=== PATIENT | male | born 1950 | race Caucasian/White ===

== ENCOUNTER → 2019-10-22 | Outpatient (CLI) | payer OTHER ==
--- NOTE | 2019-10-22 09:47 | MR ---
EXAMINATION TYPE: MR lumbar spine wo con DATE OF EXAM: 10/22/2019 COMPARISON: NONE HISTORY: Low back pain TECHNIQUE: T1 and T2 axial and sagittal images of the lumbar spine are submitted. FINDINGS: There is no abnormal signal seen within the visualized spinal cord or paraspinal soft tissu es. At L1-2 there is hypertrophic spurring anteriorly with mild to moderate degenerative change and facet arthropathy. Mild circumferential disc bulging greater laterally to the right with mild right-sided foraminal encroachment. No canal stenosis. At L2-3 there is degenerative disc disease with hypertrophic change of the facets and ligamentum flav um. Circumferential disc bulging with no discrete herniation. Mild bilateral foraminal encroachment At L3-4 there is degenerative disc disease with hypertrophic change of the facets and ligamentum flav um. Circumferential disc bulging with no discrete herniation. Mild bilateral foraminal encroachment At L4-5 there is degenerative disc disease with advanced facet arthropathy and ligamentum flavum hype rtrophy. Mild circumferential disc bulging but no evidence of disc herniation or canal stenosis. Mild foraminal encroachment. At L5-S1 there is degenerative disc disease with facet arthropathy. Neural foramina are patent. No ca nal stenosis or focal herniation. IMPRESSION: 1. Multilevel degenerative disc disease with multilevel advanced facet arthropathy. Circumferential d isc bulging at multiple levels with no evidence of canal stenosis or discrete herniation. Multilevel mild foraminal encroachment as discussed
== END | disposition home or self-care (01) ==
LOC: RADMRIMAIN 08:41
PROVIDERS: ATTEND Physician Assistant Medical
DX: M51.36 Other intervertebral disc degeneration, lumbar region (principal); M46.96 Unspecified inflammatory spondylopathy, lumbar region
CPT/HCPCS: 72148

== ENCOUNTER → 2021-10-08 | Outpatient (CLI) | payer OTHER ==
[2021-10-08 17:20] LABS: Basophils # (A) 0.04 X 10*3/uL (0.00-0.10); Basophils % (A) 0.6 %; Eosinophils # (A) 0.17 X 10*3/uL (0.04-0.35); Eosinophils % (A) 2.7 %; HCT 39.7 % (39.6-50.0); HGB 12.6 g/dL (13.0-17.0); Immature Grans, Automated 0.6 %; Lymphocytes # (A) 1.84 X 10*3/uL (0.90-5.00); Lymphocytes % (A) 28.8 %; MCH 27.5 pg (27.0-32.0); MCHC 31.7 g/dL (32.0-37.0); MCV 86.7 fL (80.0-97.0); Mean Platelet Volume 10.2 fL (9.5-12.2); Monocytes # (A) 0.66 X 10*3/uL (0.20-1.00); Monocytes % (A) 10.3 %; NRBC Per 100 WBC 0 /100 WBCS (0.0-0.0); Neutrophils # (A) 3.63 X 10*3/uL (1.80-7.70); Platelet Count 168 X 10*3/uL (140-440); RBC 4.58 X 10*6/uL (4.40-5.60); RDW 13.2 % (11.5-14.5); WBC 6.38 X 10*3/uL (4.50-10.00)
[2021-10-08 17:39] LABS: African American GFR (CKD) 64.5 (60.0-200.0); Albumin 4.3 g/dL (3.8-4.9); Albumin/Globulin Ratio 2.15 (1.60-3.17); Anion Gap 12.3 mmol/L (10.00-18.00); Blood Urea Nitrogen 18.2 mg/dL (9.0-27.0); Calcium 9.1 mg/dL (8.7-10.3); Carbon Dioxide 22.7 mmol/L (20.0-27.5); Non-African American GFR(CKD) 55.7 (60.0-200.0); Potassium 4.6 mmol/L (3.5-5.5); Total Bilirubin 0.3 mg/dL (0.30-1.20); Total Protein 6.3 g/dL (6.2-8.2)
== END | disposition home or self-care (01) ==
LOC: LABPAT 09:17
PROVIDERS: ATTEND Urology
DX: Z01.812 Encounter for preprocedural laboratory examination (principal); N20.1 Calculus of ureter
CPT/HCPCS: 36415; 80053; 85025

== ENCOUNTER 2021-10-15 06:11 | Day surgery (SDC) | payer OTHER ==
--- NOTE | 2021-10-12 20:34 | P.GSHP ---
History of Present Illness H&P Date: 10/12/21 Chief Complaint: Left flank pain The patient is a 71-year-old white male with no prior history of urolithiasis. He presented last month with a long history of left lower back pain. A computed tomography scan performed on 08/30/2021 showed moderate left hydronephrosis due to a 2 cm left UVJ calculus. Alternative treatment options were reviewed, and he has elected to undergo ureteroscopy with laser lithotripsy. - Constitutional Constitutional: Denies chills, Denies fever - Gastrointestinal Gastrointestinal: Reports nausea, Denies vomiting - Genitourinary (Male) Genitourinary: Reports hematuria Past Medical History Past Medical History: Diabetes Mellitus, Hyperlipidemia, Myocardial Infarction ([place]), Sleep Apnea/CPAP/BIPAP Additional Past Medical History / Comment(s): seasonal allergies, diet control diabetic, History of Any Multi-Drug Resistant Organisms: None Reported Additional Past Surgical History / Comment(s): surgery for hiatal hernia, hemorrhoidectomy Past Anesthesia/Blood Transfusion Reactions: No Reported Reaction Past Psychological History: No Psychological Hx Reported Past Alcohol Use History: None Reported Additional Past Alcohol Use History / Comment(s): quit smoking 2012, smoked for approx 40 yrs- 1 PPD Past Drug Use History: None Reported - Past Family History Mother Family Medical History: Cancer Medications and Allergies Home Medications Medication Instructions Recorded Confirmed Type Bitter Melon 1 tab PO DAILY 12/03/15 12/03/15 History Chromium Picolinate 1,000 mcg PO DAILY 12/03/15 12/03/15 History Fluticasone Nasal [place] [Flonase 1 spray EA NOSTRIL DAILY PRN 12/03/15 12/03/15 History Nasal [place]] Glucosam/Nura-Msm1/C/Taqueria/Bosw 2 each PO DAILY 12/03/15 12/03/15 History [Glucosamine-Chondroitin Tablet] Loratadine [Claritin] 10 mg PO DAILY 12/03/15 12/03/15 History Allergies Allergy/AdvReac Type Severity Reaction Status Date / Time No Known Allergies Allergy Verified 12/07/15 07:21 Surgical - Exam - General well developed, well nourished, no distress - Neck no masses, trachea midline - Respiratory normal respiratory effort - Abdomen Abdomen: soft, non tender, no guarding, no rigid, no rebound - Genitourinary normal penis with no external lesions, testicles non-tender - Rectum Rectum: normal sphincter tone, no masses, other (Prostate moderately enlarged but smooth) - Psychiatric oriented to time, oriented to person, oriented to place, speech is normal, memory intact Results - Imaging CT scan - abdomen: report reviewed, image reviewed Assessment and Plan (1) Calculus of ureter Status: Acute Code(s): N20.1 - CALCULUS OF URETER SNOMED Code(s): 49178149 (2) Hydronephrosis with renal and ureteral calculous obstruction Status: Acute Code(s): N13.2 - HYDRONEPHROSIS WITH RENAL AND URETERAL CALCULOUS OBSTRUCTION SNOMED Code(s): 761929962 Plan: Cystoscopy, left ureteroscopy with Holmium laser lithotripsy and possible stone basketing, left ureteral stent insertion. The procedure then reviewed in detail with the patient. He has been made aware of potential risks, which include anesthesia, bleeding, infection, and ureteral injury. Given the stone burden, he is aware of the possible need for secondary treatments. He is also aware that he may develop a ureteral stricture in this region despite successful removal of the calculus. He is also aware of the possible permanent loss of left renal function due to prolonged obstruction.
[2021-10-14 09:49] VITALS: BMI 29.6
[~2021-10-15 06:11] MED LIST: DEXAMETHASONE SOD PHOSPHATE 4 MG/ML 1 ML VIAL IV ONE; LACTATED RINGERS 1,000 ML IV SCH; MIDAZOLAM 2 MG/2 ML VIAL IV PRN; ONDANSETRON 4 MG/2 ML VIAL IVP ONE
[2021-10-15] MEDS ORDERED: HYDROmorphone 0.5 MG/0.5 ML SYRINGE IVP PRN (07:00)
[2021-10-15 07:02] LABS: Glucose,Whole Blood 181 mg/dL (75-99)
--- NOTE | 2021-10-15 07:24 | XR ---
EXAMINATION TYPE: XR KUB DATE OF EXAM: 10/15/2021 HISTORY: Pain Comparison: None.Single KUB is submitted for interpretation. Findings: Right renal calculi: None Visualized. Right ureteral calculi: None Visualized. Left renal calculi: None Visualized. Left ureteral calculi: None Visualized. Pelvic calcifications: Large 1.5 x 2.5 cm calculus within the left hemipelvis adjacent to the region of the left UVJ. Additional punctate calcifications may reflect phleboliths. Bowel gas pattern is unremarkable. No free air. No mass effects. IMPRESSION: 1. Large 1.5 x 2.5 cm calculus within the left hemipelvis adjacent to the region of the left UVJ.
[2021-10-15] MEDS ORDERED: LIDOCAINE 1% INJ 10MG/ML (20 ML MDV) ONE (07:38)
[2021-10-15] MEDS ORDERED: ROCURONIUM 10 MG/ML (5 ML VIAL) IV ONE (07:38)
[2021-10-15] MEDS ORDERED: HYDROmorphone (PF) 1 MG/ML ONE (07:38)
[2021-10-15] MEDS ORDERED: fentaNYL (PF) 50 MCG/ML 2 ML AMP ONE (07:38)
[2021-10-15] MEDS ORDERED: SUCCINYLCHOLINE CHLORIDE 100 MG/5 ML SYR IV ONE (07:38)
[2021-10-15] MEDS ORDERED: PROPOFOL 10 MG/ML 20 ML VIAL IV ONE (07:38)
[2021-10-15] MEDS ORDERED: PHENYLEPHRINE-0.9% NACL SYG 1,000 MCG/10 ML SYRINGE ONE (07:38)
[2021-10-15] MEDS ORDERED: MIDAZOLAM 2 MG/2 ML VIAL ONE (07:38)
[2021-10-15] MEDS ORDERED: IOPAMIDOL-370 50ML BTL MISCELLANE ONE (08:40)
[2021-10-15] MEDS ORDERED: LACTATED RINGERS 1,000 ML IV ONE (09:28)
[2021-10-15 11:02] VITALS: TEMP 97.6
[2021-10-15 11:07] VITALS: RESP 16
--- NOTE | 2021-10-15 11:12 | P.OP ---
Date of Procedure: 10/15/21 Preoperative Diagnosis: Left ureteral calculus Postoperative Diagnosis: Left ureteral calculus, urethral stricture Procedure(s) Performed: Cystoscopy, direct visual internal urethrotomy (DVIU), left ureteroscopy with Holmium laser lithotripsy, left ureteral stent insertion Anesthesia: WATSONA Surgeon: Mendel Yancey Estimated Blood Loss (ml): 30 IV fluids (ml): 1,100 Pathology: none sent Condition: stable Disposition: PACU Indications for Procedure: The patient is a 71-year-old white male with no prior history of urolithiasis. He presented last month with a long history of left lower back pain. A computed tomography scan performed on 08/30/2021 showed moderate left hydronephrosis due to a 2 cm left UVJ calculus. Alternative treatment options were reviewed, and he has elected to undergo ureteroscopy with laser lithotripsy. Operative Findings: Penile urethral strictures. Very large left distal ureteral calculus, partially fragmented. Description of Procedure: The patient was taken to the operating room and placed in the dorsolithotomy position, with legs supported in Kenney stirrups. The external genitalia was prepped and draped sterilely. The 30 lens was used to introduce the 21-Mozambican Hook cystoscopic sheath through the urethra. Resistance was met due to a distal penile urethral stricture. The visual urethrotome was used along with the 0 lens to perform a direct visual internal urethrotomy, incising the urethra at the 12 o'clock position. A second structure was identified within the distal bulbous urethra, and this was incised in an identical fashion. It was then possible to advance the visual urethrotome into the bladder. The prostatic urethra showed evidence of mild lateral lobe enlargement. The visual urethrotome was removed, and the cystoscope was advanced into the bladder under direct vision. The bladder was examined in its entirety. Both ureteral orifices were normal anatomic location and configuration, and clear urine effluxed from the right ureteral orifice. No tumors or foreign bodies were seen. With significant difficulty, it was possible to cannulate the left ureteral orifice using an angle-tip 0.035 inch Glidewire. The Glidewire was advanced beyond the calculus and up to the left renal pelvis. A 15-Mozambican balloon dilating catheter was then used to dilate the ureteral orifice. The Hook semirigid ureteroscope was advanced into the bladder, and the left ureteral orifice was cannulated. the ureteroscope was advanced up to the calculus. The 365 micron Holmium laser probe was passed through the ureteroscope, and lithotripsy was performed. This was continued until the majority of the calculus had been fragmented. The ureteroscope was then removed, and the cystoscope was replaced into the bladder. A 26 cm, 6-Mozambican double-J ureteral stent was placed over the wire. Proper stent positioning was verified fluoroscopically and endoscopically. The cystoscope was removed. An 18-Mozambican Rodriguez catheter was placed. The return was faintly pink tinged. The patient tolerated the procedure well and was taken to the recovery room in stable condition. [facility] Report: Procedure Acuity: Semi-Urgent Stone Size and Location: Left distal ureter, 2.5 cm Ureteral Dilation: Balloon Dilation Ureteral Access Sheath Used: No Stone Sent for Analysis: No All Stones/Fragments Were Removed with a Basket: No Complications: No Preoperative Antibiotics Given: Yes Stent Placed: Yes If Stent Placed, Was String Left Attached: No If Stent Placed, When is it to be Removed: 2 weeks Discharge Medications: Tamsulosin, Toradol
--- NOTE | 2021-10-15 11:43 | FL ---
Fluoroscopy HISTORY: Left ureteral calculus 52 seconds fluoroscopy time supplied to the referring clinician. 3 intraoperative C-arm images docum ent the procedure. See dictated report from urology.
[2021-10-15 12:27] VITALS: BP 122/70; PULSE 71
[2021-10-15] MEDS ORDERED: HYDROcodone/APAP 5-325MG 1 EACH TAB ONE (12:29)
[2021-10-15] MEDS ORDERED: HYDROcodone/APAP 5-325MG 1 EACH TAB PO ONE (12:30)
== END 2021-10-15 14:17 | disposition home or self-care (01) ==
LOC: OR 06:11
PROVIDERS: ATTEND Urology
DX: N20.1 Calculus of ureter (principal); N35.919 Unspecified urethral stricture, male, unspecified site; E11.9 Type 2 diabetes mellitus without complications; E78.5 Hyperlipidemia, unspecified; I25.2 Old myocardial infarction; G47.33 Obstructive sleep apnea (adult) (pediatric)
CPT/HCPCS: 52276; 50605; 74018; C2625; C1769 ×2; C1758; J2250; J1100; J0690; J2405; J2001; J3010; J1170; J2370; J0330; J2704; Q9967

== ENCOUNTER 2021-11-11 08:16 | Day surgery (SDC) | payer OTHER ==
--- NOTE | 2021-10-23 08:17 | P.GSHP ---
History of Present Illness H&P Date: 10/23/21 Chief Complaint: Left flank pain The patient is a 71-year-old white male with no prior history of urolithiasis. He presented last month with a long history of left lower back pain. A CT scan performed on 08/30/2021 showed moderate left hydronephrosis due to a 2 cm left UVJ calculus. Alternative treatment options were reviewed, and he has elected to undergo ureteroscopy with laser lithotripsy. This was performed on 10/15/2021, as the calculus was fragmented. He was found to have urethral stricture disease, and a direct visual internal urethrotomy (DVIU) was performed. He now comes for stent removal with removal of residual calculus fragments. - Constitutional Constitutional: Denies chills, Denies fever - Gastrointestinal Gastrointestinal: Reports nausea, Denies vomiting - Genitourinary (Male) Genitourinary: Reports flank pain, Reports hematuria, Reports kidney stones Past Medical History Past Medical History: Diabetes Mellitus, Hyperlipidemia, Sleep Apnea/CPAP/BIPAP Additional Past Medical History / Comment(s): seasonal allergies, diet control diabetic, History of Any Multi-Drug Resistant Organisms: None Reported Additional Past Surgical History / Comment(s): surgery for hiatal hernia, hemorrhoidectomy Past Anesthesia/Blood Transfusion Reactions: No Reported Reaction Past Psychological History: No Psychological Hx Reported Past Alcohol Use History: None Reported Additional Past Alcohol Use History / Comment(s): quit smoking 2012, smoked for approx 40 yrs- 1 PPD Past Drug Use History: None Reported - Past Family History Mother Family Medical History: Cancer Sister(s) Family Medical History: Cancer Medications and Allergies Home Medications Medication Instructions Recorded Confirmed Type Fluticasone Nasal [place] [Flonase 1 spray EA NOSTRIL DAILY PRN 12/03/15 10/14/21 History Nasal [place]] Loratadine [Claritin] 10 mg PO DAILY 12/03/15 10/14/21 History Aspirin [Adult Low Dose Aspirin EC] 81 mg PO DAILY 10/14/21 10/14/21 History Atorvastatin Calcium [Lipitor] 40 mg PO W/SUPPER 10/14/21 10/14/21 History Ferrous Sulfate [Iron] 325 mg PO DAILY 10/14/21 10/14/21 History Ibuprofen [Motrin] 600 mg PO Q8HR PRN 10/14/21 10/14/21 History glipiZIDE [Glucotrol] 10 mg PO AC-BID 10/14/21 10/14/21 History lisinopriL 10 mg PO W/SUPPER 10/14/21 10/14/21 History metFORMIN HCL [Glucophage] 1,000 mg PO BID 10/14/21 10/14/21 History Sulfamethox-Tmp 800-160Mg [Bactrim 1 tab PO Q12HR #14 tab 10/15/21 Rx DS 800-160 mg] Tamsulosin [Flomax] 0.4 mg PO DAILY #30 cap 10/15/21 Rx Allergies Allergy/AdvReac Type Severity Reaction Status Date / Time No Known Allergies Allergy Verified 10/15/21 06:36 Surgical - Exam - General well developed, well nourished, no distress - Respiratory normal respiratory effort - Abdomen Abdomen: soft, non tender, no guarding, no rigid, no rebound - Genitourinary normal penis with no external lesions, testicles non-tender - Psychiatric oriented to time, oriented to person, oriented to place, speech is normal, memory intact Results - Imaging CT scan - abdomen: report reviewed, image reviewed Assessment and Plan (1) Calculus of ureter Status: Acute Code(s): N20.1 - CALCULUS OF URETER SNOMED Code(s): 89984206 Plan: Cystoscopy, possible urethral dilation or DVIU, left ureteral stent removal, left ureteroscopy with holmium laser lithotripsy and stone basketing. The intent is to remove all residual calculus fragments from the ureter. The procedure has been reviewed in detail with the patient, and he is aware of potential risks which include anesthesia, bleeding, infection, ureteral injury, and inability to successfully remove all calculus fragments.
[2021-11-08 16:33] VITALS: BMI 29.6
[~2021-11-11 08:16] MED LIST changes: +HYDROmorphone 0.5 MG/0.5 ML SYRINGE IVP PRN; +LIDOCAINE 1% (10MG/ML) FOR IV START INTRADERMA PRN; +fentaNYL (PF) 50 MCG/ML 2 ML AMP IV PRN
--- NOTE | 2021-11-11 08:42 | XR ---
EXAMINATION TYPE: XR KUB DATE OF EXAM: 11/11/2021 COMPARISON: 10/15/2021 INDICATION: Left ureteral calculus TECHNIQUE: Single view abdomen supine view FINDINGS: There is a nonspecific bowel gas pattern. Psoas margins are normal. No organomegaly is present. Left ureteral stent has been placed. There are fragmented calcifications at the distal left ureteral region. Previous large calcification is not evident. Phleboliths are within the pelvis. IMPRESSION: 1. Placement of a left ureteral stent. Fragmented calcifications are in the expected distal left uret eral region.
[2021-11-11 08:45] VITALS: TEMP 97.4
[2021-11-11 09:04] LABS: Glucose,Whole Blood 165 mg/dL (75-99)
[2021-11-11] MEDS ORDERED: SCOPOLAMINE 1.5MG/72HR PATCH TRANSDERM ONE (09:04)
[2021-11-11] MEDS ORDERED: IOPAMIDOL-370 50ML BTL MISCELLANE ONE (09:58)
[2021-11-11] MEDS ORDERED: PHENYLEPHRINE-0.9% NACL SYG 1,000 MCG/10 ML SYRINGE ONE (10:00)
[2021-11-11] MEDS ORDERED: fentaNYL (PF) 50 MCG/ML 2 ML AMP ONE (10:00)
[2021-11-11] MEDS ORDERED: MIDAZOLAM 2 MG/2 ML VIAL ONE (10:00)
[2021-11-11] MEDS ORDERED: LIDOCAINE 1% INJ 10MG/ML (20 ML MDV) ONE (10:00)
[2021-11-11] MEDS ORDERED: ePHEDrine 50 MG/ML 1 ML VIAL ONE (10:00)
[2021-11-11] MEDS ORDERED: NEOSTIGMINE 1 MG/ML 10 ML VIAL ONE (10:00)
[2021-11-11] MEDS ORDERED: SUCCINYLCHOLINE CHLORIDE 100 MG/5 ML SYR IV ONE (10:00)
[2021-11-11] MEDS ORDERED: PROPOFOL 10 MG/ML 20 ML VIAL IV ONE (10:00)
[2021-11-11] MEDS ORDERED: ROCURONIUM 10 MG/ML (5 ML VIAL) IV ONE (10:00)
[2021-11-11] MEDS ORDERED: HYDROmorphone (PF) 1 MG/ML ONE (10:00)
[2021-11-11] MEDS ORDERED: GLYCOPYRROLATE 0.2 MG/ML 2 ML VIAL ONE (10:00)
[2021-11-11] MEDS ORDERED: LACTATED RINGERS 1,000 ML IV ONE (11:30)
--- NOTE | 2021-11-11 11:39 | P.OP ---
Date of Procedure: 11/11/21 Preoperative Diagnosis: Urethral stricture, left ureteral calculus Postoperative Diagnosis: Same Procedure(s) Performed: Urethral dilation, cystoscopy, left ureteral stent removal, left ureteroscopy with Holmium laser lithotripsy and stone basketing Anesthesia: FELI Surgeon: Mendel Yancey Estimated Blood Loss (ml): 5 IV fluids (ml): 900 Pathology: other (Calculus fragments, sent for chemical analysis) Condition: stable Disposition: PACU Indications for Procedure: The patient is a 71-year-old white male with no prior history of urolithiasis. He presented last month with a long history of left lower back pain. A CT scan performed on 08/30/2021 showed moderate left hydronephrosis due to a 2 cm left UVJ calculus. Alternative treatment options were reviewed, and he has elected to undergo ureteroscopy with laser lithotripsy. This was performed on 10/15/2021, as the calculus was fragmented. He was found to have urethral stricture disease, and a direct visual internal urethrotomy (DVIU) was performed. He now comes for stent removal with removal of residual calculus fragments. Operative Findings: Left distal ureteral calculus, fragmented completely. Description of Procedure: The patient was taken to the operating room and placed in the dorsolithotomy position, with legs supported in Kenney stirrups. The external genitalia was prepped and draped sterilely. Ruthie sounds were used to dilate the distal urethra. The 30 lens was used to introduce the 17-English Hook cystoscopic sheath through the urethra and into the bladder. The distal end of the left ureteral stent was visualized. This was grasped with grasping forceps and removed along with the cystoscope. A 0.035 inch Glidewire was passed through the stent and up to the left renal pelvis. The stent was removed. The Hook semirigid ureteroscope was advanced into the bladder, and the left ureteral orifice was cannulated. The ureteroscope was advanced into the distal ureter, where multiple calculus fragments were seen measuring up to 5 mm. The 365 micron Holmium laser probe was passed through the ureteroscope, and lithotripsy was performed. This was continued until the majority of the calculus fragments were 1-2 mm in diameter or less. A 1.9-English nitinol basket was then used to grasp the larger of the fragments, which were simply deposited into the bladder. Once this was completed, only multiple tiny fragments remained. There was no evidence of ureteral perforation. The ureteroscope was removed, along with the Glidewire. The cystoscope was passed into the bladder under direct vision. Multiple calculus fragments were removed from the bladder. They were saved and sent for chemical analysis. The bladder was emptied and the cystoscope was removed. The patient tolerated the procedure well and was taken to the recovery room in stable condition. [facility] [place] Report: Procedure Acuity: Elective Stone Size and Location: Left distal ureter, 2.5 cm (Stage 2) Ureteral Dilation: No Ureteral Access Sheath Used: No Stone Sent for Analysis: Yes All Stones/Fragments Were Removed with a Basket: No Complications: No Preoperative Antibiotics Given: Yes Stent Placed: No Discharge Medications: Toradol
[2021-11-11] MEDS ORDERED: KETOROLAC 15 MG/ML 1 ML VIAL IVP ONE ×2 (11:58→12:10)
[2021-11-11 13:27] VITALS: RESP 20
[2021-11-11 13:51] VITALS: BP 115/71; PULSE 76
--- NOTE | 2021-11-11 15:41 | FL ---
Fluoroscopy INDICATION: Pain FINDINGS: Fluoroscopy time: 5 seconds. Images obtained: 1. IMPRESSIONS: 1. Documentation of fluoroscopy.
== END 2021-11-11 13:52 | disposition home or self-care (01) ==
LOC: OR 08:16
PROVIDERS: ATTEND Urology
DX: N20.1 Calculus of ureter (principal); N21.0 Calculus in bladder; N35.914 Unspecified anterior urethral stricture, male; E11.9 Type 2 diabetes mellitus without complications; E78.5 Hyperlipidemia, unspecified; G47.33 Obstructive sleep apnea (adult) (pediatric); Z99.89 Dependence on other enabling machines and devices; J30.9 Allergic rhinitis, unspecified; Z87.891 Personal history of nicotine dependence; Z80.9 Family history of malignant neoplasm, unspecified; Z79.84 Long term (current) use of oral hypoglycemic drugs; Z79.899 Other long term (current) drug therapy; I25.2 Old myocardial infarction; Z87.19 Personal history of other diseases of the digestive system
CPT/HCPCS: 52353; 82365; 74018; C1769; J2250; J1100; J2710; J0690; J2405; J2001; J3010; J1170 ×2; J1885; J2370; J0330; J2704; Q9967

== ENCOUNTER → 2022-01-26 | Outpatient (CLI) | payer OTHER ==
--- NOTE | 2022-01-27 09:21 | XR ---
EXAMINATION TYPE: XR KUB DATE OF EXAM: 01/26/2022 HISTORY: Pain Comparison: 11/11/2021ingle KUB is submitted for interpretation. Findings: Right renal calculi: None Visualized. Right ureteral calculi: None Visualized. Left renal calculi: None Visualized. Left-sided ureteral stent has been removed. Left ureteral calculi: None Visualized. Pelvic calcifications: None Visualized. Bowel gas pattern is unremarkable. No free air. No mass effects. IMPRESSION: 1. Examination limited by overlying bowel content. Calculi seen previously distal left ureter are no longer visible.
--- NOTE | 2022-01-27 14:07 | US ---
EXAMINATION TYPE: US kidneys/renal and bladder DATE OF EXAM: 01/26/2022 COMPARISON: NONE CLINICAL HISTORY: N13.2 Hydronephrosis. EXAM MEASUREMENTS: Right Kidney: 10.4 x 5.0 x 4.7 cm Left Kidney: 10.3 x 4.7 x 4.5 cm Right Kidney: 0.4cm echogenic focus lateral superior pole Left Kidney: 1.8cm isoechoic area mid pole, possible column of edelmira Bladder: wnl Bilateral Jets seen: right jet not seen, left jet seen IMPRESSION: 1. Nonobstructing right renal stone.
== END | disposition home or self-care (01) ==
LOC: RADUSWWP 14:14
PROVIDERS: ATTEND Urology
DX: N20.0 Calculus of kidney (principal)
CPT/HCPCS: 74018; 76770

== ENCOUNTER → 2022-03-25 | Outpatient (CLI) | payer OTHER ==
[2022-03-25 14:24] LABS: ALT 21 U/L (10-49); AST 14 U/L (14-35); Albumin 4.2 g/dL (3.8-4.9); Albumin/Globulin Ratio 1.79 (1.60-3.17); Alkaline Phosphatase 63 U/L (41-126); BUN/Creat Ratio 22.76 Ratio (12.00-20.00); Calcium 9.1 mg/dL (8.7-10.3); Carbon Dioxide 23.9 mmol/L (20.0-27.5); Chloride 106 mmol/L (96-109); Chol/HDL Ratio 4.05 Ratio; Globulin 2.3 g/dL (1.6-3.3); Glucose 168 mg/dL (70-110); LDL Cholesterol,Calculated 64.9 mg/dL (0.0-131.0); Non-African American GFR(CKD) 59.5 (60.0-200.0); Potassium 4.8 mmol/L (3.5-5.5); Sodium 141 mmol/L (135-145); Total Protein 6.5 g/dL (6.2-8.2)
[2022-03-25 22:50] LABS: Microalbumin Creatinine Ratio <30 mg/g Creat (0-30)
== END | disposition home or self-care (01) ==
LOC: LABWHC1 08:31
PROVIDERS: ATTEND Internal Medicine Endocrinology, Diabetes & Metabolism
DX: E11.65 Type 2 diabetes mellitus with hyperglycemia (principal)
CPT/HCPCS: 36415; 80053; 80061; 82043; 82570; 83036; 84443

== ENCOUNTER → 2022-06-03 | Outpatient (CLI) | payer OTHER ==
[2022-06-03 10:57] LABS: Chol/HDL Ratio 4.67 Ratio
== END | disposition home or self-care (01) ==
LOC: LABWHC1 07:52
PROVIDERS: ATTEND Internal Medicine Interventional Cardiology
DX: E78.5 Hyperlipidemia, unspecified (principal)
CPT/HCPCS: 36415; 80061

== ENCOUNTER → 2022-08-26 | Outpatient (CLI) | payer OTHER ==
--- NOTE | 2022-08-26 07:53 | US ---
EXAMINATION TYPE: US kidneys/renal and bladder DATE OF EXAM: 08/26/2022 COMPARISON: Renal ultrasound 01/26/2022 CLINICAL HISTORY: N13.2 HYDRONEPHROSIS. 2cm stone in left ureter 6 months ago that has since been lit hotripsied. Lt flank pain. EXAM MEASUREMENTS: Right Kidney: 9.2 x 4.3 x 4.2 cm Left Kidney: 11.4 x 4.2 x 6.2 cm Right Kidney: No hydronephrosis or masses seen Left Kidney: No hydronephrosis or masses seen, probable dromedary hump midpole Bladder: wnl There is no evidence for hydronephrosis at this point in time. No nephrolithiasis is seen. Dromedary hump involving the midpole of the left kidney. No masses are identified. The urinary bladder is ane choic. Bilateral ureteral jets are not seen. IMPRESSION: 1. No hydronephrosis. 2. Previously seen right renal stone is not definitively visualized on today's exam. No visualized l eft renal calculi.
== END | disposition home or self-care (01) ==
LOC: RADUSWWP 07:05
PROVIDERS: ATTEND Urology
DX: N13.2 Hydronephrosis with renal and ureteral calculous obstruction (principal)
CPT/HCPCS: 76770

== ENCOUNTER → 2022-12-29 | Outpatient (CLI) | payer OTHER ==
[2022-12-29 16:14] LABS: ALT 23 U/L (10-49); AST 12 U/L (14-35); African American GFR (CKD) 78.4 (60.0-200.0); Albumin 4.1 g/dL (3.8-4.9); Albumin/Globulin Ratio 2.09 (1.60-3.17); Alkaline Phosphatase 73 U/L (41-126); BUN/Creat Ratio 29.09 Ratio (12.00-20.00); Calcium 9.1 mg/dL (8.7-10.3); Carbon Dioxide 23.7 mmol/L (20.0-27.5); Chloride 106 mmol/L (96-109); Chol/HDL Ratio 3.55 Ratio; Glucose 176 mg/dL (70-110); LDL Cholesterol,Calculated 70.4 mg/dL (0.0-131.0); Non-African American GFR(CKD) 67.7 (60.0-200.0); Potassium 4.9 mmol/L (3.5-5.5); Sodium 140 mmol/L (135-145); Total Protein 6.1 g/dL (6.2-8.2); VLDL Calculation 17.24 mg/dL (5.00-40.00)
[2022-12-29 18:35] LABS: Urine Creatinine 60.8 mg/dL (39.0-259.0)
== END | disposition home or self-care (01) ==
LOC: LABWHC1 07:18
PROVIDERS: ATTEND Internal Medicine Endocrinology, Diabetes & Metabolism
DX: E11.65 Type 2 diabetes mellitus with hyperglycemia (principal)
CPT/HCPCS: 36415; 80053; 80061; 82043; 82570; 83036; 84443

== ENCOUNTER → 2023-06-15 | Outpatient (CLI) | payer OTHER ==
[2023-06-15 16:43] LABS: ALT 25 U/L (10-49); AST 14 U/L (14-35); Alkaline Phosphatase 72 U/L (41-126); BUN/Creat Ratio 23.64 Ratio (12.00-20.00); Calcium 9.3 mg/dL (8.7-10.3); Carbon Dioxide 24.6 mmol/L (21.6-31.8); Chloride 108 mmol/L (96-109); Chol/HDL Ratio 3.87 Ratio; Glucose 174 mg/dL (70-110); LDL Cholesterol,Calculated 70.4 mg/dL (0.0-131.0); Potassium 4.6 mmol/L (3.5-5.5); Sodium 143 mmol/L (135-145); Total Bilirubin 0.3 mg/dL (0.3-1.2)
[2023-06-15 20:00] LABS: Microalbumin Creatinine Ratio <18 mg/g Cr (0-30); Urine Creatinine 67.4 mg/dL (39.0-259.0)
== END | disposition home or self-care (01) ==
LOC: LABWHC1 08:54
PROVIDERS: ATTEND Internal Medicine Endocrinology, Diabetes & Metabolism
DX: E11.65 Type 2 diabetes mellitus with hyperglycemia (principal)
CPT/HCPCS: 36415; 80053; 80061; 82043; 82570; 83036; 84443

== ENCOUNTER → 2023-12-07 | Outpatient (CLI) | payer OTHER ==
[2023-12-07 11:32] LABS: ALT 27 U/L (10-49); AST 17 U/L (14-35); Albumin 3.9 g/dL (3.8-4.9); Albumin/Globulin Ratio 1.95 Ratio (1.60-3.17); Alkaline Phosphatase 72 U/L (41-126); BUN/Creat Ratio 25.09 Ratio (12.00-20.00); Blood Urea Nitrogen 27.6 mg/dL (9.0-27.0); Calcium 8.7 mg/dL (8.7-10.3); Carbon Dioxide 23.6 mmol/L (21.6-31.8); Chloride 107 mmol/L (96-109); Chol/HDL Ratio 3.86 Ratio; Glucose 167 mg/dL (70-110); LDL Cholesterol,Calculated 60.3 mg/dL (0.0-131.0); Potassium 4.9 mmol/L (3.5-5.5); Sodium 141 mmol/L (135-145); Total Bilirubin 0.3 mg/dL (0.3-1.2); Total Protein 5.9 g/dL (6.2-8.2)
[2023-12-07 22:50] LABS: Microalbumin Creatinine Ratio <17 mg/g Cr (0-30); Urine Creatinine 72.6 mg/dL (39.0-259.0)
== END | disposition home or self-care (01) ==
LOC: LABWHC1 07:54
PROVIDERS: ATTEND Internal Medicine Endocrinology, Diabetes & Metabolism
DX: E11.65 Type 2 diabetes mellitus with hyperglycemia (principal)
CPT/HCPCS: 36415; 80053; 80061; 82043; 82570; 83036; 84443

== ENCOUNTER → 2024-02-09 | Outpatient (CLI) | payer OTHER ==
--- NOTE | 2024-02-09 11:17 | CTL ---
EXAMINATION TYPE: CT Low Dose Lung DATE OF EXAM ORDERED: 02/09/2024 History: Lung cancer screening CT DLP: 121.[address] CTDI: 3.1 mGy Automated exposure control for dose reduction was used. Comparison: None TECHNIQUE: Low dose computed tomography scan was performed through the chest at 1 mm thick sections a nd reconstructed images in multiple planes at 1 mm and [address] DIAGNOSTIC QUALITY: Satisfactory FINDINGS: There are mild emphysematous changes with an upper lobe predominance. There is a small calcified granuloma in the right lower lobe. There is a 1 to 2 mm nodule in the righ t upper lobe laterally. There is no suspicious lung mass. There is no airspace consolidation or abnormal interstitial density. There is no pleural effusion, pleural thickening or pneumothorax. Great vessels chest are normal as no mediastinal, hilar or axillary adenopathy. The esophagus is patulous and there is a small to moderate hiatal hernia. There are postsurgical baum ges at the GE junction. Limited scans the upper abdomen reveals 2 nonobstructing right renal calculi the largest of which is 7 mm. There is a focal defect in the posterior left seventh rib. IMPRESSION: 1. Lung RADS category 2 benign. Continue routine screening yearly intervals. 2. Mild emphysematous changes. 3. Patulous esophagus with small hernia and postoperative changes at the GE junction 4. 2 nonobstructing right renal calcifications.
== END | disposition home or self-care (01) ==
LOC: RADCTMAIN 09:24
PROVIDERS: ATTEND Family Medicine
DX: Z12.2 Encounter for screening for malignant neoplasm of respiratory organs (principal); J43.8 Other emphysema; Z87.891 Personal history of nicotine dependence
CPT/HCPCS: 71271

== ENCOUNTER → 2025-02-17 | Outpatient (CLI) | payer OTHER ==
--- NOTE | 2025-02-17 14:36 | CTL ---
EXAMINATION TYPE: CT Low Dose Lung DATE OF EXAM: 02/17/2025 9:39 AM COMPARISON: 02/09/2024 CLINICAL INDICATION: Male, 74 years old with history of Z12.2 LUNG CA SCR Z87.891 FORMER SMOKER; hist ory of smoker, history of tobacco use. TECHNIQUE: Multiple axial non-contrast scans were obtained from approximately the lung apices through the upper abdomen. Coronal and sagittal reformatted images were obtained. Low dose technique was uti lized. MIP were created on a separate workstation and submitted for review. CT DLP: 89.8 mGycm, Automated exposure control for dose reduction was used. CT Contrast: Contrast used: None Oral contrast used: None FINDINGS: Lack of intravenous contrast and low dose technique limits the evaluation of the vascular and soft ti ssue structures. LUNGS: No evidence of pulmonary fibrosis. No evidence of focal consolidation, pneumothorax or pleural effusion. Centrilobular emphysema changes. Nodules: RUL: 2 mm series 5 image 20, cameron. RML: None. RLL: 3 mm series 5 image 32, stable. LACI: None. LLL: None. AIRWAY: Patent and unremarkable. HEART: Size within normal limits. Moderate coronary artery calcifications present. Thickening and ca lcification of aortic valve present. MEDIASTINUM: No gross evidence of adenopathy. Postsurgical changes gastroesophageal junction. VASCULATURE: No aortic aneurysm. MUSCULOSKELETAL: No acute osseous abnormalities multiple Fátima joint bodies near the left shoulder si milar to prior. SOFT TISSUES/LYMPH NODES: Unremarkable. LOWER NECK: No significant findings. UPPER ABDOMEN: Nonobstructing right renal calculus measuring 8 mm. IMPRESSION: 1. No clinically significant pulmonary nodules. 2. Mild emphysema. 3. Severe coronary artery atherosclerosis. 4. Mild aortic valve calcifications. CT LUNG RAD AND CT CHEST RECOMMENDATION: Lung-Rad 2 Benign Appearance or Behavior: Continue annual sc reening with LDCT in 12 months. S Modifier (other clinically significant findings): None Recommend smoking cessation (if current smoker), or continuation of smoking cessation (if prior smoke r). Annual screening for lung cancer with low-dose computed tomography is recommended in adults ages 55 to 77 years who have a 30 pack-year smoking history and currently smoke or have quit within the pa st 15 years. Screening should be discontinued once a person has not smoked for 15 years or develops a health problem that substantially limits life expectancy or the ability or willingness to have curat millicent lung surgery. Lung rads 2021 [email or web address] [email or web address], , 02/17/2025 2:33 PM
== END | disposition home or self-care (01) ==
LOC: RADCTMAIN 09:00
PROVIDERS: ATTEND Internal Medicine Pulmonary Disease
DX: Z12.2 Encounter for screening for malignant neoplasm of respiratory organs (principal); J43.2 Centrilobular emphysema; I25.10 Atherosclerotic heart disease of native coronary artery without angina pectoris; I35.8 Other nonrheumatic aortic valve disorders; Z87.891 Personal history of nicotine dependence
CPT/HCPCS: 71271